=== PATIENT | female | born 1960 | race Caucasian/White ===

== ENCOUNTER → 2018-09-01 | Outpatient (CLI) | payer OTHER ==
[~2018-09-01] MED LIST: PERCOCET 5-3251 EACH PO; PROTONIX40 M2 PO; ZOFRAN 4 MG ORAL4 MG PO; [UNRECOGNIZED DRUG - OTHER]
== END ==
LOC: CAT 10:53
DX: Z13.6 Encounter for screening for cardiovascular disorders (principal); Z82.49 Family history of ischemic heart disease and other diseases of the circulatory system

== ENCOUNTER → 2021-04-26 | Outpatient (CLI) | payer BC, OTHER | LOC: BC 07:46 | PROVIDERS: ATTEND Family Medicine | DX: Z12.31 Encounter for screening mammogram for malignant neoplasm of breast (principal); N64.89 Other specified disorders of breast ==